=== PATIENT | male | born 1985 | race Two or more races ===

== ENCOUNTER 2020-03-20 17:12 | Emergency (ER) | payer OTHER, MEDICAID ==
[~2020-03-20] VITALS: Ht 172.7 cm; Wt 77.1 kg
--- NOTE | 2020-03-20 17:30 | NUR ---
ED Nurse Note: pt presents to ED c/o cough and fever x 1 week. pt reports that he has been having fevers that he's been treating with tylenol at home without improvement. pt also reports back pain and NUÑEZ since onset of fever & cough. pt reports vomiting yesterday and not being able to eat for several days due to vomiting. pt denies diarrhea or loss of taste/smell at this time. he last tested for COVID about 1 month ago and the result was negative. pt is noted to be febrile in triage. SpO2 on teletypesetter monitor is 97% on RA. pt appears to be lethargic with a flat affect, no acute distress is noted, AOx4, no acute distress noted at this time
[2020-03-20 17:50] VITALS: BP 119/83
[2020-03-20 18:18] LABS: HEMATOCRIT 49.1 % (42.0-52.0); HEMOGLOBIN 16.7 G/DL (14.2-18.0); MEAN CORPUSCULAR VOLUME 84 FL (80-99); PLATELET COUNT 98 K/UL (150-450); RED BLOOD COUNT 5.85 M/UL (4.70-6.10); RED CELL DISTRIBUTION WIDTH 11.5 % (11.6-14.8); WHITE BLOOD COUNT 3.6 K/UL (4.8-10.8)
--- NOTE | 2020-03-20 18:22 | NUR ---
ED Nurse Note: pt's [place] [phone] patient authorized approval to give his updates on his condition and
--- NOTE | 2020-03-20 18:25 | NUR ---
ED Nurse Note: oral temperature recheck: 100.1
[2020-03-20 18:32] LABS: ANION GAP 5 mmol/L (5-15); BLOOD UREA NITROGEN 15 mg/dL (7-18); CALCIUM 8.3 MG/DL (8.5-10.1); CARBON DIOXIDE 30 MMOL/L (21-32); CHLORIDE 96 MMOL/L (98-107); CREATININE 1.1 MG/DL (0.55-1.30); POTASSIUM 3.8 MMOL/L (3.5-5.1); SODIUM 131 MMOL/L (136-145)
--- NOTE | 2020-03-20 18:37 | Emergency Room Report ---
History of Present Illness General Chief Complaint: Upper Respiratory Illness Source: Patient (Ben White) Present Illness HPI 35-year-old male with no known significant past medical history here complaining of 1 week of shortness of breath and chest pressure. Also complains of headache and generalized muscle ache. Denies diarrhea, loss of taste and smell. I saw patient's earlier who presented with Covid-like symptoms. Patient was exposed to someone who is Covid positive about a week ago. Denies tobacco smoke, drug use, alcohol intake. Patient appears to have oxygen saturation of 90% upon arrival on room air and temperature of 103 F with slight tachycardia. Has not taken medication for symptom relief. (Ben White) Allergies: Coded Allergies: No Known Allergies (Unverified , 03/20/20) COVID-19 Screening Contact w/high risk pt: No Experienced COVID-19 symptoms?: Yes COVID-19 Testing performed LEVER TENDER: No (Ben White) Patient History Past Medical History: see triage record Past Surgical History: none Pertinent Family History: none Immunizations: UTD Reviewed Nursing Documentation: PMH: Agreed; PSxH: Agreed (Ben White) Nursing Documentation-PMH Past Medical History: No Stated History (Ben White) Review of Systems All Other Systems: negative except mentioned in HPI (Ben White) Physical Exam Vital Signs Date Time Temp Pulse Resp B/P (MAP) Pulse Ox O2 Delivery O2 Flow Rate FiO2 03/20/20 17:20 103.3 113 20 112/78 (89) 90 Room Air Sp02 EP Interpretation: abnormal - O2 sat 90%, temperature 103 F, heart rate 113 General Appearance: no apparent distress, alert, GCS 15, non-toxic Head: normocephalic, atraumatic Eyes: bilateral eye normal inspection, bilateral eye PERRL ENT: hearing grossly normal, normal pharynx, no angioedema, normal voice Neck: full range of motion, supple/symm/no masses Respiratory: chest non-tender, no respiratory distress, no retraction, speaking full sentences Cardiovascular #1: regular rate, rhythm, no edema Cardiovascular #2: 2+ carotid (R), 2+ carotid (L), 2+ radial (R), 2+ radial (L), 2+ dorsalis pedis (R), 2+ dorsalis pedis (L) Gastrointestinal: normal bowel sounds, non tender, soft, non-distended, no guarding, no rebound Rectal: deferred Musculoskeletal: back normal Neurologic: alert, motor strength/tone normal, oriented x3, sensory intact, responsive, speech normal Psychiatric: judgement/insight normal, memory normal, mood/affect normal, no suicidal/homicidal ideation Skin: no rash Lymphatic: no adenopathy (Ben White) Medical Decision Making PA Attestation All diagnoses and treatment plans were reviewed and discussed with my supervising physician Dr. Norman (Ben White) Diagnostic Impression: Primary Impression: Hypoxia Additional Impression: Pneumonia due to COVID-19 virus ER Course 35-year-old male with no known significant past medical history here complaining of 1 week of shortness of breath and chest pressure. Also complains of headache and generalized muscle ache. Denies diarrhea, loss of taste and smell. I saw patient's earlier who presented with Covid-like symptoms. Patient was exposed to someone who is Covid positive about a week ago. Denies tobacco smoke, drug use, alcohol intake. Patient appears to have oxygen saturation of 90% upon arrival on room air and temperature of 103 F with slight tachycardia. Has not taken medication for symptom relief. Ddx considered but are not limited to: bronchitis, PNA, URI viral, bacterial bronchitis, Covid pneumonia Vital signs: are WNL, pt. is febrile H&PE are most consistent with: Hypoxia, Covid pneumonia ORDERS: ED Covid order set ED INTERVENTIONS: Dexamethasone Patient oxygen went up to 97% after walking and stable, at this time it was decided by me my supervising physician Dr. Norman for patient to go back home and be discharged on medication. pt stable at time of discharge. (Ben White) ER Course Please see above note. Patient history obtained and examined by me. Agree with above assessment and have been involved with treatment plan. Patient needs admission to the hospital as he requires oxygen at this time. Dexamethasone Rocephin and azithromycin have been administered along with Tylenol. Patient improved on oxygen. Presented to Dr Chappell at [facility]. 1915 Patient no longer requiring oxygen therapy. Exercise actually led to 100% oxygen saturation. Rocephin held. Cancel transfer. Discussed with patient discharge plan and outpatient observation and follow-up with [place]. (Ronnie Norman MD) EKG Diagnostic Results Rate: normal Rhythm: NSR ST Segments: no acute changes Other Impression No acute ST changes ASA given to the pt in ED: No (Ben White) Rhythm Strip Diag. Results EP Interpretation: yes Rhythm: no PVC's, no ectopy, other - ST (Ronnie Norman MD) Chest X-Ray Diagnostic Results Chest X-Ray Diagnostic Results : Chest X-Ray Ordered: Yes # of Views/Limited/Complete: 1 View Indication: Shortness of Breath EP Interpretation: Yes PA Xray: Interpretation reviewed, by supervising MD, and agrees with findings. Interpretation: no pneumothorax, no acute cardiopulmonary disease, other - Patchy infiltrates noted Impression: Other - Patchy infiltrates noted, possible Covid pneumonia Electronically Signed by: Ben Ruiz PA-C (Ben White) Chest X-Ray Diagnostic Results : Electronically Signed by: Andrew Garza documentation of Xray reviewed by me and is accurate, Ronnie Norman MD (Ronnie Norman MD) Last Vital Signs Date Time Temp Pulse Resp B/P (MAP) Pulse Ox O2 Delivery O2 Flow Rate FiO2 03/20/20 17:50 113 20 Room Air 03/20/20 17:50 103.3 119/83 96 (Ben White) Last Vital Signs Date Time Temp Pulse Resp B/P (MAP) Pulse Ox O2 Delivery O2 Flow Rate FiO2 03/20/20 20:15 99.1 90 22 108/75 99 Room Air Status: improved (Ronnie Norman MD) Disposition: HOME, SELF-CARE Condition: Stable Scripts Albuterol Sulfate (VENTOLIN HFA) 18 Gm Hfa.aer.ad 2 PUFFS INH EVERY 6 HOURS, #18 GM 0 Refills Prov: Ben White 03/20/20 Azithromycin* (ZITHROMAX*) 250 Mg Tablet 250 MG ORAL DAILY, #6 TAB 0 Refills Take two tables once daily for 1 day, then one tablet once daily for 4 days. Prov: Ben White 11/25/20 Prednisone* (PREDNISONE*) 20 Mg Tablet 40 MG ORAL DAILY for 5 Days, #10 TAB Prov: Ben White 03/20/20 Referrals: NON PHYSICIAN (PCP) Patient Instructions: Community-Acquired Pneumonia, Adult, [id number] Additional Instructions: Take medication as directed, follow primary care provider, self isolate for 14 days, if worsening symptoms return to the emergency room Ben White Mar 20, 2020 18:37 Ronnie Norman MD Mar 20, 2020 19:05
[2020-03-20 18:42] LABS: APPEARANCE,URINE SLIGHTLY CLOUDY; BILIRUBIN, URINE NEGATIVE (NEGATIVE); GLUCOSE, URINE (UA) NEGATIVE (NEGATIVE); KETONES,URINE 2+ (NEGATIVE); LEUKOCYTE ESTERASE ,URINE 1+ (NEGATIVE); NITRITE,URINE NEGATIVE (NEGATIVE); PH,URINE 6 (4.5-8.0); PROTEIN,URINE 2+ (NEGATIVE); UROBILINOGEN,URINE 4 MG/DL (0.0-1.0)
[2020-03-20 18:46] LABS: ALANINE AMINOTRANSFERASE 76 U/L (12-78); ALBUMIN 3.5 G/DL (3.4-5.0); ALBUMIN/GLOBULIN RATIO 0.8 (1.0-2.7); ALKALINE PHOSPHATASE 76 U/L (46-116); ASPARTATE AMINO TRANSFERASE 47 U/L (15-37); BILIRUBIN,TOTAL 0.6 MG/DL (0.2-1.0); CKMB < 0.5 NG/ML (0.0-3.6); CREATINE KINASE 95 U/L (26-308); FERRITIN 916 NG/ML (8-388); LACTATE DEHYDROGENASE 365 U/L (81-234)
[2020-03-20 18:48] LABS: COLOR,URINE YELLOW
--- NOTE | 2020-03-20 19:05 | NUR ---
ED Nurse Note: Report received from MATEO Velasco. Patient is resting in bed with safety measures in place. He denies any pain at this time. Breathing is normal and unlabored on room air with stable o2 saturation. HR is within normal limits.
[2020-03-20] MEDS ORDERED: cefTRIAXone 1 GM in NS 55 ML IVPB ONE (19:15)
[2020-03-20] MEDS ORDERED: Azithromycin 500 MG in NS 275 ML IV ONE (19:15)
[2020-03-20 19:25] VITALS: BP 116/71
--- NOTE | 2020-03-20 19:30 | NUR ---
ED Nurse Note: Lactic acid drawn and sent to lab.
[2020-03-20] MEDS ORDERED: VENTOLIN HFA18 GM INH (19:35)
[2020-03-20] MEDS ORDERED: PREDNISONE20 MG ORAL (19:35)
[2020-03-20] MEDS ORDERED: ZITHROMAX250 MG ORAL (19:35)
--- NOTE | 2020-03-20 19:55 | NUR ---
ED Nurse Note: Patient able to ambulate within closed room and maintain stable oxygen saturation without getting short of breath.
[2020-03-20 20:15] VITALS: BP 108/75
--- NOTE | 2020-03-20 20:15 | NUR ---
ER DISCHARGE NOTE: Patient is cleared to be discharged per ERMD, pt is aox4, on room air, with stable vital signs. pt was given dc and prescription instructions, pt was able to verbalize understanding, pt id band and iv site removed without complications. pt is able to ambulate with steady gait. pt took all belongings.
--- NOTE | 2020-03-21 15:57 | Diagnostic Imaging Report ---
EXAM: XR Chest, 1 View CLINICAL HISTORY: SOB TECHNIQUE: Frontal view of the chest. COMPARISON: None. FINDINGS: Lungs: Patchy left upper lobe airspace opacity consistent with pneumonia. Pleural space: Unremarkable. No pneumothorax. Heart: Unremarkable. No cardiomegaly. Mediastinum: Unremarkable. Bones/joints: Unremarkable. Vasculature: Decreased inspiration with vascular crowding. IMPRESSION: Left upper lobe patchy infiltrate
--- NOTE | 2020-03-22 17:54 | Cardiology Report ---
APPROVED REPORT EKG Measurement Heart [id number] <Conclusion> Normal sinus rhythm Inferior infarct, age undet Abnormal ECG
== END 2020-03-20 20:15 | disposition home or self-care (01) ==
LOC: EMR 17:35
DX: U07.1 COVID-19 (principal); J12.89 Other viral pneumonia; R09.02 Hypoxemia
CPT/HCPCS: 36415; 71045; 80053; 81003; 82550; 82553; 82728; 83605; 83615; 83690; 83880; 84484; 85007; 85025; 85379; 85610; 85730; 86140; 87040; 93005; 96365; 96375; 99284; J0456; J0696; J1100; J7050; U0004